=== PATIENT | female | born 2000 | race Caucasian/White ===

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

== ENCOUNTER → 2021-07-18 | Emergency (ER) | payer SELFPAY ==
[~2021-07-18] VITALS: Ht 154.9 cm; Wt 50.0 kg
[2021-07-18 17:29] VITALS: BP 123/82; PULSE 93; TEMP 97.7
[2021-07-18 18:30] LABS: STREP SCREEN NEGATIVE
== END ==
LOC: COL.ER 17:03
PROVIDERS: Nurse Practitioner
DX: R59.0 Localized enlarged lymph nodes (principal); F17.290 Nicotine dependence, other tobacco product, uncomplicated

== ENCOUNTER 2023-05-24 16:59 | Emergency (ER) | payer OTHER, MEDICAID ==
[~2023-05-24] VITALS: Ht 154.9 cm; Wt 56.8 kg
[~2023-05-24 16:59] MED LIST changes: +IBU800 M1 PO; +PERCOCET 325 MG1 TA2 PO
[2023-05-24] MEDS ORDERED: LORazepam 1 MG TAB PO ONE (18:00)
[2023-05-24] MEDS ORDERED: ATARAX 25MG25 MG/TAB PO (18:01)
[2023-05-24 18:03] VITALS: BP 152/84; PULSE 72
== END 2023-05-24 18:11 | disposition home or self-care (01) ==
LOC: COL.ER 16:59
DX: F41.0 Panic disorder [episodic paroxysmal anxiety] (principal); F17.290 Nicotine dependence, other tobacco product, uncomplicated